=== PATIENT | female | born 2000 | race Caucasian/White ===

== ENCOUNTER 2019-09-26 12:01 | Emergency (ER) | payer OTHER ==
--- NOTE | 2019-09-26 13:33 | ED ---
Head Injury - HPI Summary HPI Summary: Patient is a 19 y/o F presenting to the ED for a chief complaint of head injury that occurred on the night of 09/25/19 at a [employer]. Patient states that she fell from a standing position, but is unsure from what height she fell. At that time, she admits being intoxicated from alcohol. She is unsure if she had a loss of consciousness. Patient notes an abrasion to the left forehead with swelling, vomiting on 09/25/19, and blurry vision. She is unsure if the blurred vision is due to not wearing contact lenses or the head injury. She denies neck pain, back pain, or headache. No aggravating or alleviating factors are noted. She took 2 Advil on the morning of 09/26/19. Any significant PMHx is denied. - History Of Current Complaint Chief Complaint: EDHeadInjury Stated Complaint: POSS HEAD INJURY PER PT Time Seen by Provider: 09/26/19 13:25 Hx Obtained From: Patient Mechanism Of Injury: Fall From A Standing Position Onset/Duration: Traumatic - Fall, Still Present Severity Currently: None Severity Initially: Mild Pain Intensity: 0 Pain Scale Used: 0-10 Numeric Location of Head Injury: Diffuse Location: Diffuse Aggravating Factor(s): Other: - Nothing Alleviating Factor(s): Other: - Nothing Associated Signs And Symptoms: Vomiting, Swelling - Left forehead, Visual Changes - Blurred vision - Allergies/Home Medications Allergies/Adverse Reactions: Allergies Allergy/AdvReac Type Severity Reaction Status Date / Time No Known Allergies Allergy Verified 09/26/19 12:07 Home Medications: Home Medications NK [No Home Medications Reported] 09/26/19 [History Confirmed 09/26/19] PMH/Surg Hx/FS Hx/Imm Hx Previously Healthy: Yes Endocrine/Hematology History: Denies: Hx Diabetes Cardiovascular History: Denies: Hx Hypercholesterolemia, Hx Hypertension Sensory History: Denies: Hx Legally Blind, Hx Deafness Opthamlomology History: Denies: Hx Legally Blind EENT History: Denies: Hx Deafness - Surgical History Surgical History: None Surgery Procedure, Year, and Place: None Infectious Disease History: No Infectious Disease History: Denies: Traveled Outside the [place] in Last 30 Days - Family History Known Family History: Negative: Diabetes - Social History Occupation: Student Alcohol Use: Occasionally Hx Substance Use: No Substance Use Type: Reports: None Hx Tobacco Use: No Smoking Status (MU): Never Smoked Tobacco Review of Systems Positive: Blurred Vision Positive: Vomiting Positive: Edema - Left forehead. Negative: Myalgia - Neck or back Positive: Other - Positive abrasion on the left forehead Negative: Headache All Other Systems Reviewed And Are Negative: Yes Physical Exam - Summary Physical Exam Summary: Constitutional: Well-developed, Well-nourished, Alert. (-) Distressed Skin: Warm, Dry HENT: Normocephalic. Forehead contusion, superficial abrasion to the left forehead, no bony deformity Eyes: Conjunctiva normal Neck: Musculoskeletal ROM normal neck. (-) JVD, (-) Stridor, (-) Tracheal deviation. No posterior midline tenderness. Cardio: Rhythm regular, rate normal, Heart sounds normal; Intact distal pulses; The pedal pulses are 2+ and symmetric. Radial pulses are 2+ and symmetric. (-) Murmur Pulmonary/Chest wall: Effort normal. (-) Respiratory distress, (-) Wheezes, (-) Rales Abd: Soft, (-) tenderness, (-) Distension, (-) Guarding, (-) Rebound Musculoskeletal: (-) Edema Lymph: (-) Cervical adenopathy Neuro: Alert, Oriented x3 Psych: Mood and affect Normal Triage Information Reviewed: Yes Vital Signs On Initial Exam: Initial Vitals Temp Pulse Resp BP Pulse Ox 98.1 F 81 18 138/88 100 09/26/19 12:02 09/26/19 12:02 09/26/19 12:02 09/26/19 12:02 09/26/19 12:02 Vital Signs Reviewed: Yes Procedures - Sedation Patient Received Moderate/Deep Sedation with Procedure: No Diagnostics - Vital Signs Vital Signs Temp Pulse Resp BP Pulse Ox 09/26/19 12:02 98.1 F 81 18 138/88 100 - Laboratory Lab Statement: Any lab studies that have been ordered have been reviewed, and results considered in the medical decision making process. Re-Evaluation - Re-Evaluation First Eval Re-Evaluation Time: 02:35 Change: Unchanged Comment: At 02:35, patient talked with her parents and made the decision to hold off on a CT at this time. Patient was comfortable with being discharged home and given fall precautions. If the patient worsens and returns, she understands the expectation would be to have a CT. Head Injury Course/Dx Course Of Treatment: Patient is a 19 y/o F presenting to the ED for a chief complaint of head injury that occurred on the night of 09/25/19 at a [employer]. Patient states that she fell from a standing position, but is unsure from what height she fell. At that time, she admits being intoxicated from alcohol. She is unsure if she had a loss of consciousness. Patient notes an abrasion to the left forehead with swelling, vomiting on 09/25/19, and blurry vision. She is unsure if the blurred vision is due to not wearing contact lenses or the head injury. She denies neck pain, back pain, or headache. No aggravating or alleviating factors are noted. She took 2 Advil on the morning of 09/26/19. Any significant PMHx is denied. On exam, forehead contusion, superficial abrasion to the left forehead, no bony deformity, no posterior midline tenderness. At 02:35, patient talked with her parents and made the decision to hold off on a CT at this time. Patient was comfortable with being discharged home and given fall precautions. If the patient worsens and returns, she understands the expectation would be to have a CT. Patient will be discharged with a diagnosis of head injury and forehead contusion. Follow up with [facility] in 2 days. - Diagnoses Provider Diagnoses: Head injury, Forehead contusion Discharge ED - Sign-Out/Discharge Documenting (check all that apply): Patient Departure - Discharge - Discharge Plan Condition: Stable Disposition: HOME Patient Education Materials: Head Injury (ED), Fall Prevention (ED) Referrals: [facility] [Outside] [facility] - Jeramie VALLEJO [Z.BUSINESS, APPLICATION, OTHER] - Additional Instructions: RETURN TO THE EMERGENCY DEPARTMENT FOR CHANGING OR WORSENING SYMPTOMS. Follow up with [facility] in 2 days. - Billing Disposition and Condition Condition: STABLE Disposition: Home - Attestation Statements Document Initiated by Scribe: Yes Documenting Scribe: Ursula Jenkins Provider For Whom Scribe is Documenting (Include Credential): Jitendra Morris DO Scribe Attestation: Ursula Velarde, lupis for Jitendra Morris DO on 09/26/19 at 1505. Scribe Documentation Reviewed: Yes Provider Attestation: The documentation as recorded by the scribe, Ursula Jenkins accurately reflects the service I personally performed and the decisions made by me, Jitendra Morris DO Status of Scribe Document: Viewed
[2019-09-26 15:02] VITALS: BP 126/74
== END 2019-09-26 15:05 | disposition home or self-care (01) ==
LOC: ED 12:01
DX: S00.83XA Contusion of other part of head, initial encounter (principal); W18.30XA Fall on same level, unspecified, initial encounter; Y92.9 Unspecified place or not applicable
CPT/HCPCS: 99281